=== PATIENT | female | born 1945 | race Caucasian/White ===

== ENCOUNTER → 2017-09-06 | Outpatient (CLI) | payer MEDICARE, OTHER ==
[~2017-09-06] MED LIST: REGADENOSON 0.4 MG/5 ML SYR IV ONE
--- NOTE | 2017-09-07 17:34 | Cardiology Report ---
DATE OF STUDY: September 06, 2017 NUCLEAR GATED MYOCARDIAL PERFUSION SCAN Performed at [facility]. Lexiscan injected 0.4 mg intravenously as stress agent. Myoview injected 10.7 mCi per resting protocol and 32.8 mCi for stress protocol. I supervised the stress test and interpreted the nuclear stress test. IMPRESSION 1. Mild anterior wall attenuation noted during the stress slices. Mild anterior wall ischemia noted. 2. Left ventricular ejection fraction 60%. Job#: [id number]
== END ==
LOC: NM 08:31
PROVIDERS: ATTEND Internal Medicine Cardiovascular Disease
DX: R07.9 Chest pain, unspecified (principal)
CPT/HCPCS: 78452; 93017; A9502

== ENCOUNTER 2017-09-19 02:10 | Emergency (ER) | payer MEDICARE, OTHER ==
[~2017-09-19] VITALS: Ht 160 cm; Wt 63.5 kg
[2017-09-19] MEDS ORDERED: ONDANSETRON HCL 4 MG ORAL DISINTEGRATING TAB PO ONE (02:45)
[2017-09-19 02:50] LABS: BILIRUBIN,URINE NEGATIVE (NEGATIVE); KETONES,URINE NEGATIVE (NEGATIVE); LEUKOCYTE ESTERASE ,URINE NEGATIVE (NEGATIVE); NITRITE,URINE NEGATIVE (NEGATIVE); PROTEIN,URINE DIPSTICK NEGATIVE (NEGATIVE); URINE UROBILINOGEN 0.2 mg/dL (0.2 - 1)
[2017-09-19 02:53] LABS: CLARITY,URINE CLEAR (CLEAR); COLOR,URINE YELLOW (YELLOW)
[2017-09-19 03:03] LABS: AMORPHOUS SEDIMENT,URINE FEW (FEW); BACTERIA,URINE FEW /HPF; EPITHELIAL CELLS,URINE RARE /LPF; RBC,URINE 0-5 /HPF (0-5); WBC,URINE (MAN) 0-5 /HPF (0-5)
[2017-09-19] MEDS ORDERED: ZOFRAN ODT4 MG SL (06:29)
--- NOTE | 2017-09-19 10:58 | Diagnostic Imaging Report ---
Examination: CT BRAIN WITHOUT CONTRAST History:Fall. Head injury. Comparison studies:None Technique: Axial images were obtained from the skull base to the vertex. Coronal and sagittal images reconstructed from the axial data. Intravenous contrast: None Findings: Scalp: No abnormalities. Bones: No fractures, blastic or lytic lesions. Brain sulci: Appropriate for age. Ventricles: Normal in size and configuration. No hydrocephalus. Extra-axial space: No abnormalities. Parenchyma: No abnormal densities. No masses, hemorrhage, acute or chronic vascular insults. Sellar/suprasellar region: No abnormalities. Craniocervical junction: Patent foramen magnum. No Chiari one malformation. Incidental findings: None. Impression: No intracranial abnormalities. Signed by: Dr. Priya Gann M.D. on 09/19/2017 10:54 AM
[2017-09-22] MEDS ORDERED: BACTRIM DS TAB1 EACH PO (08:22)
[2017-09-22] MEDS ORDERED: NORTRIPTYLINE H10 MG PO (08:22)
[2017-09-22] MEDS ORDERED: AMLODIPINE BESY10 MG PO (08:22)
[2017-09-22] MEDS ORDERED: PANTOPRAZOLE SO40 MG PO (08:22)
[2017-09-22] MEDS ORDERED: ASPIRIN EC81 MG PO (08:22)
[2017-09-22] MEDS ORDERED: LEVOCETIRIZINE D5 MG PO (08:22)
[2017-09-22] MEDS ORDERED: METOPROLOL TART25 MG PO (08:22)
== END 2017-09-19 06:50 | disposition home or self-care (01) ==
LOC: ER 02:10
DX: S06.0X0A Concussion without loss of consciousness, initial encounter (principal); S00.03XA Contusion of scalp, initial encounter; R51 Headache; R11.2 Nausea with vomiting, unspecified; W22.09XA Striking against other stationary object, initial encounter; Y92.008 Other place in unspecified non-institutional (private) residence as the place of occurrence of the external cause; I10 Essential (primary) hypertension; I25.10 Atherosclerotic heart disease of native coronary artery without angina pectoris; K21.9 Gastro-esophageal reflux disease without esophagitis
CPT/HCPCS: 70450; 81001; 87086; 99283

== ENCOUNTER → 2017-09-22 | Day surgery (SDC) | payer MEDICARE, OTHER ==
[2017-09-21 16:16] LABS: BASOPHILS % 0.4 % (0.0-1.0); EOSINOPHILS # (AUTO) 0.1 (0.0-0.4); EOSINOPHILS % 1.3 % (0.0-6.0); HEMATOCRIT 38.2 % (34.2-44.1); HEMOGLOBIN 12.5 g/dL (12.0-16.0); MEAN CORPUSCULAR HEMOGLOBIN 31.1 pg (28-32); MEAN CORPUSCULAR HGB CONC 32.7 g/dL (31-35); MONOCYTES # (AUTO) 1.1 (0.2-0.8); MONOCYTES % 14.3 % (4.4-11.3); NEUTROPHILS # (AUTO) 4.2 (2.1-6.9); NEUTROPHILS % 56.7 % (38.7-80.0); PLATELET COUNT 270 x10e3/uL (140-360); RED BLOOD COUNT 4.02 x10e6/uL (3.6-5.1); RED CELL DISTRIBUTION WIDTH 12.3 % (11.7-14.4)
[2017-09-21 16:30] LABS: CREATININE, SERUM 0.78 mg/dL (0.57-1.11)
--- NOTE | 2017-09-21 16:43 | Diagnostic Imaging Report ---
PROCEDURE: Frontal and lateral views of the chest. COMPARISON: None. INDICATIONS: pre op for heart cath FINDINGS: Lines/tubes: None. Lungs: The lungs are well inflated and clear. There is no evidence of pneumonia or pulmonary edema. Pleura: There is no pleural effusion or pneumothorax. Heart and mediastinum: The heart and the mediastinum are normal. Bones: No acute bony abnormality. IMPRESSION: 1. No acute cardiopulmonary disease. Mervin Gupta M.D. Dictated by: Mervin Gupta M.D. on 09/21/2017 at 16:52 Electronically approved by: Mervin Gupta M.D. on 09/21/2017 at 16:52
[~2017-09-22] VITALS: Ht 160 cm; Wt 63.5 kg
[~2017-09-22] MED LIST changes: +AMLODIPINE BESY10 MG PO; +ASPIRIN EC81 MG PO; +BACTRIM DS TAB1 EACH PO; +FENTANYL CITRATE/PF 100MCG/2 ML INJ ONE; +HEPARIN SOD/SOD CHLORIDE 2,000 ML ONE; +IOPAMIDOL 370 MG/ML 200 ML INFUS..BTL INJ ONE; +LEVOCETIRIZINE D5 MG PO; +LIDOCAINE HCL 2% LOCAL 20 ML VIAL ONE; +METOPROLOL TART25 MG PO; +MIDAZOLAM HCL 2 MG/2 ML VIAL ONE; +NORTRIPTYLINE H10 MG PO; +PANTOPRAZOLE SO40 MG PO; -REGADENOSON 0.4 MG/5 ML SYR IV ONE; +SODIUM CHLORIDE 0.9% 1000ML 1,000 ML ONE; +ZOFRAN ODT4 MG SL
[2017-09-22 13:42] VITALS: BP 137/68
--- NOTE | 2017-09-22 15:47 | Pre Op History & Physical ---
CHIEF COMPLAINT: Patient comes in with chest pain. HISTORY OF PRESENT ILLNESS: Patient had a nuclear stress, was found to have mild anterior wall ischemia. Patient is known patient with mild coronary artery disease in the past. Patient has history of hypertension, and patient also complains of shortness of breath. Ejection fraction about 35%. Patient with no history of myocardial infarction. Patient very anxious person. Patient does not smoke, and THE PATIENT IS SUPPOSED TO BE ALLERGIC TO LISINOPRIL WHERE SHE GETS A COUGH. HOWEVER, WE ARE STILL GIVING HER LISINOPRIL BECAUSE OF LOW EF. Her medications include amlodipine, lisinopril, metoprolol, nitroglycerin p.r.n. chest pain, and also patient took Bactrim recently because of bronchitis. Patient did not have any major surgeries in past. PATIENT HAS NO SIGNIFICANT ALLERGIES. Patient did not have any stroke. Had no history of nausea, vomiting, abdominal pain. PHYSICAL EXAMINATION GENERAL: The patient is conscious, alert, well oriented. HEART: Normal. LUNGS: Normal. ABDOMEN: Normal. NEUROLOGIC: Normal. SKIN: Normal. EKG shows nonspecific ST-T changes. Nuclear test is abnormal with anterior wall ischemia noted. Ejection fraction is 35% by echo. IMPRESSION 1. Angina pectoris. 1. Left ventricular function decreased, 35%. 2. Hypertension. 3. Hiatal hernia. Patient admitted at this time for coronary angiogram. Job#: [id number]
--- NOTE | 2017-09-22 15:51 | Operative Report ---
DATE OF PROCEDURE: September 22, 2017 PROCEDURES PERFORMED: Left heart catheterization, left ventricular angiogram and coronary angiogram to the right femoral artery with conscious sedation. Informed consent at photo lab specialist at [facility]. INDICATIONS FOR PROCEDURE: Angina pectoris, abnormal nuclear stress test, EF 35%. PROCEDURE RESULTS: Right coronary arteriogram showed normal right coronary artery. The left main artery is normal. Left circumflex artery has got 10% lesion noted. The LAD has got 10% lesion noted. No significant lesion noted in the coronary arteries. Left ventricular angiogram showed ejection fraction of 38% with global hypokinesia. IMPRESSION: Nonischemic cardiomyopathy. Right femoral artery is closed with Perclose closure device. The patient is in stable condition at this time. Will continue present medications. Job#: [id number] GH
--- NOTE | 2017-09-22 15:56 | Discharge Summary ---
DISCHARGE DIAGNOSIS 1. Angina pectoris. 2. Minimal coronary artery disease. 3. Nonischemic cardiomyopathy. 4. Hypertension. PROCEDURES: By Dr. Perez 1. Left heart catheterization. 2. Left ventricular angiogram. 3. Coronary angiogram through the right femoral artery, excellent results. Patient underwent coronary angiogram, does not show significant disease. Mild plaques are noted in the circumflex, LAD. LVEF 30%. Patient to continue beta babita, lisinopril, anticholesterol medication and aspirin. Patient will be discharged today, and I discussed with her possibly wearing a LifeVest for 3 months and possibly AICD at a later time. Patient at this time in stable condition. After going home, patient will be seen in my office 1 week from now. Patient advised to go home and take rest, and normal diet is advised at this time and increase the p.o. fluids. Patient discharged in stable condition. Kwan PEREZ MD Job#: [id number] EV
== END | disposition home or self-care (01) ==
LOC: CATH LAB 07:38
PROVIDERS: ATTEND Internal Medicine Cardiovascular Disease
DX: I25.119 Atherosclerotic heart disease of native coronary artery with unspecified angina pectoris (principal); I42.8 Other cardiomyopathies; I10 Essential (primary) hypertension; R94.39 Abnormal result of other cardiovascular function study; K44.9 Diaphragmatic hernia without obstruction or gangrene; Z01.810 Encounter for preprocedural cardiovascular examination; Z01.812 Encounter for preprocedural laboratory examination; Z01.818 Encounter for other preprocedural examination; Z79.82 Long term (current) use of aspirin
CPT/HCPCS: 36415; 71046; 77002; 82565; 84520; 85025; 93005; 93458; C1725; J2001; J2250; J7030; Q9967; 36140

== ENCOUNTER 2020-07-20 17:30 | Emergency (ER) | payer MEDICARE, OTHER ==
[~2020-07-20] VITALS: Ht 160 cm; Wt 72.6 kg
[~2020-07-20 17:30] MED LIST changes: -FENTANYL CITRATE/PF 100MCG/2 ML INJ ONE; -HEPARIN SOD/SOD CHLORIDE 2,000 ML ONE; -IOPAMIDOL 370 MG/ML 200 ML INFUS..BTL INJ ONE; -LIDOCAINE HCL 2% LOCAL 20 ML VIAL ONE; -MIDAZOLAM HCL 2 MG/2 ML VIAL ONE; -SODIUM CHLORIDE 0.9% 1000ML 1,000 ML ONE
--- OUTSIDE RECORDS SUMMARY | 2020-07-20 19:04 | XMS REPORT | Continuity of Care Document ---
Author Author [facility] t Organization [facility] Address [address] [place] [address] Phone Unavailable Care Team Providers Care Architectural Sales Consultant Name Role Phone Andrzej DIETRICH, Jessica Singleton PCP Henok Yepez MD Attphys Miles Valdez Attphys ALBINA VALDEZ Attphys Unavailable Francisca MORELOS Attphys Unavailable Payers Payer Name Policy Type Policy Number Effective Date Expiration Date S ashu MEDICAREMEDICARE PART A AND [id number] 2015-PresentHOU REJI [facility] [id number] 2015 00:00:00 [place] [facility] A[employer]NA[employer]ENTAL LIFE INS CO OF [id number] 2020- PresentCommercial [id number] 2019 00:00:00 [facility] Problems Condition Name Condition Details Condition Category Status Onset Date Resolution Date Last Treatment Date Treating Clinician Comments Source S09.90XA , S09. 90XA , Active 11/08/2019 [facility] Diagnosis Active 2019-11-08 00:00:00 2019-11-13 09:10:00 Vannessa Saldana Cerebrovascular accident (disorder) Cerebrovascular accident (disorder) Active Problem 11/15/2019 [facility] Problem Active 2019-11-15 22:56:13 Vannessa Saldana Atherosclerosis of coronary artery (disorder) Atherosclerosis of coronary artery (disorder) Active Problem 11/15/2019 [facility] Problem Active 2019-11-15 22:56:13 [facility] Les Gastroesophageal reflux disease (disorder) Gastroesophageal reflux disease (disorder) Active Problem 11/15/2019 [facility] Problem Active 2019-11-15 22:56:13 [facility] Heart failure (disorder) Hear t failure (disorder) Active Problem 11/15/2019 [facility] Problem Active 2019-11-15 22:56:1 3 [facility] Hyperlipidemia (disorder) Hype rlipidemia (disorder) Active Problem 11/15/2019 [facility] Problem Active 2019-11-15 22:5 6:13 [facility] Hypertensive disorder, systemic arterial (disorder) Hypertensive disorder, systemic arterial (disorder) Active Problem 11/15/2019 [facility] Problem Active 2019-11-15 22:56:13 [facility] UNSPECIF[facility] INJURY OF HEAD, INITIAL ENCO UNSPECIFIED INJURY OF HEAD, INITIAL ENCO Active [facility] Diagnosis Active 2019-11-13 09:10:00 Vannessa Saldana Allergies, Adverse Reactions, Alerts Allergy Name Allergy Type Status Severity Reaction(s) Onset Date Inacti ve Date Treating Clinician Comments Source hydrocodone DA Active [place] 2018-05-20 00:00:00 [facility] acetaminophen DA Active MT 2018-05-20 00:00:00 [facility] hydrocodone DA Active MT 2017-12-06 00:00:00 [facility] acetaminophen DA Active MT 2017-12-06 00:00:00 [facility] penicillin penicillin Active Pa demetra Saldana Social History Social Habit Start Date Stop Date Quantity Comments Source Sex Assigned At Shivani Borrego Exposure to SARS-CoV-2 (event) Not sure Tulio Borrego Social History 2018-08-18 23:57:10 2018-08-18 23:57:10 [facility] Les Medications This patient has no known medications. Immunizations Ordered Immunization Name Filled Immunization Name Date Status Comments Source Influenza Whole 2017-09-03 00:00:00 Completed Tulio Borrego Pneumococcal Conjugate 13-Valent 2017-03-18 00:00:00 Compl eted Tulio Borrego Procedures Procedure Date / Time Performed Performing Clinician Segun carvalho MRI KNEE WO CONTRAST LEFT 2020-07-15 14:24:36 Glory Yepez Cataract surgery Vannessa candelario Coronary angiogram [facility] meliton Plan of Care Planned Activity Planned Date Details Comments Source Future Scheduled Test 2020-03-28 00:00:00 INFLUENZA VACCINE [code = INFLUENZA VACCINE] Tulio Borrego Future Scheduled Test 2018-03-18 00:00:00 65+ PNEUMOCOCCAL V ACCINE (2 of 2 - PPSV23) [code = 65+ PNEUMOCOCCAL VACCINE (2 of 2 - PPSV23)] [facility] Future Scheduled Test 1995 00:00:00 BREAST CANCER SCRE ENING [code = BREAST CANCER SCREENING] [facility] Future Scheduled Test 1995 00:00:00 COLONOSCOPY SCREEN ING [code = COLONOSCOPY SCREENING] [facility] Future Scheduled Test 1995 00:00:00 SHINGLES VACCINES (#1) [code = SHINGLES VACCINES (#1)] [facility] Encounters Start Date/Time End Date/Time Encounter Type Admission Type [facility] Care Department Encounter ID Source 2020-07-15 00:00:00 2020-07-15 00:00:00 Outpatient GLORY YEPEZ [facility] [id number] [facility] 2019-11-13 09:01:00 2019-11-13 23:59:00 Outpatient Maria Doloresmarlin Albina schmidt Miles [facility] [id number] 2019-11-13 09:01:00 2019-11-13 09:01:00 Outpatient [facility] Results Test Description Test Time Test Comments Results Result Comments Source MRI Knee Left Wo Contrast 2020-07-15 14:39:25 H m Interface, Radiology Results 07/15/2020 2:42 PM CSTEXAMINATION: MRI KNEE WO CONTRAST LEFTCLINICAL HISTORY: M25.562 Pain in left knee, pain in left kneeTECHNIQUE: Multiplanar multisequence MR imaging of the left knee was performed without contrast.COMPARISON: None.FINDINGS:Cruciate ligaments: Intact.Collateral ligaments: Intact.Medial Compartment:Probable small tear involving the inferior articular surface of the medial meniscus posterior horn near the meniscal root, images 14 and 15 of series 6. There is overall cartilage thinning of the medial femoral condyle with mild osteophytosis.Lateral Compartment:Intermediate signal involving free edge of the body of lateral meniscus probably due to fraying of the free edge. Otherwise, no clear meniscal tear noted. No significant cartilage loss.Patellofemoral Compartment:Cartilage thinning and scattered areas of cartilage loss, most severe involving the lateral facet of the patella with mild subchondral edema. Extensor mechanism: Intact.Effusion: Small joint effusion with synovitis.Bone marrow: No other areas of marrow signal abnormality.Soft tissues: There is a small approximately 1 cm septated popliteal cyst. Prominent edema of the medial fat pad near the quadriceps.IMPRESSION:1.Small joint effusion with prominent degree of synovitis, with edema involving the medial aspect of the quadriceps fat pad. Degree of synovitis appears out of portion to the amount of cartilage abnormality, and possibility of inflammatory arthritis could also be considered and correlated.2.Osteoarthritis of the knee with areas of cartilage loss, most notable involving the patellofemoral compartment and to a lesser degree the medial compartment.3.There is probable small meniscal tear involving the posterior horn of medial meniscus.[id number] [facility] CREATININE W ESTIMATED GFR 2020-04-09 11:12:00 Test Item BEDSIDE CREATININE (test code = CREATBED) mg/dL 0.7-1.3 N GLOMERULAR FILTRATION RATE POC (test code = GFRBED) 68 >6 0 H CREATININE W ESTIMATED [id number] 11:12:00* Test Item Value Reference Range Interpretation Comments BEDSIDE CREATININE (test code = CREATBED) 0.82 mg/dL 0.7-1.3 N GLOMERULAR FILTRATION RATE POC (test code = GFRBED) > 60 >6 0 H Previously reported result: 68 Edited by: ISRAEL on 04/09/20:456241 1112: GFRBED previously reported as: 68 H SCR MAMM BILATERAL YUE CAD [id number] 10:31:16 - SCR MAMM BILATERAL YUE CAD DIGITALBILATERAL DIGITAL SCREENING MAMMOGRAM 3D/2D WITH CAD: 08/07/2019CLINICAL: Asymptomatic. Digital breast tomosynthesis was performed in addition to routine CC and MLO views. Current mammographic images were evaluated by either a [employer] M-Vu or a [employer] Image[employer] CAD (computer aided detection system). Comparison is made to exams dated 07/18/2018 mammogram, 06/28/2017 mammogram, and 06/28/2016 mammogram - [facility]. The tissue of both breasts is heterogeneously dense. This may lower the sensitivity of mammography. No suspicious mass, architectural distortion, malignant type calcification, or lymph node abnormality detected. Breast architecture is stabl e compared to prior exams.IMPRESSION: NEGATIVEThere is no mammographic evidence of malignancy. Resume annual screening mammography in one year. Bladimir morales M.D. ss/penrad:08/07/2019 10:31:16 [place] [employer]: Mary Mathew , [facility] sent: BIRADS 1-2 Normal Mammogram B I-RADS: 1 NegativeSCR MAMM BILATERAL YUE CAD [id number] 14:57:06 - SCR MAMM BILATERAL YUE CAD DIGITALBILATERAL DIGITAL SCREENING MAMMOGRAM 3D/2D WITH CAD: 07/18/2018CLINICAL: Asymptomatic. Digital breast tomosynthesis was performed in addition to routine CC and MLO views. Current mammographic images were evaluated by either a [employer] M-Vu or a [employer] ImageCheck[employer] CAD (computer a ided detection system). Comparison is made to exams dated 06/28/2017 mammogram, 06/28/2016 mammogram, and [facility]. The tissue of both breasts is heterogeneously dense. This may lower the sensitivity of mammography. No suspicious mass, architectural distortion, malignant type calcification, or lymph node abnormality detected. Breast architecture is stabl e compared to prior exams.IMPRESSION: NEGATIVEThere is no mammographic evidence of malignancy. Resume annual screening mammography in one year. Garland Nguyen n/penrad:07/18/2018 14:57:06 [employer]: Ivon power , [facility] sent: BIRADS 1-2 Normal Mammogram BI-RA DS: 1 NegativeCHEST 2 VIEWS [place] [address] Patient Name: JEAN-PIERRE URENA MR #: [id number] : 1945 Age/Sex: 71/F Req #: [id number] [facility] Physician: Ordered by: ALBINA VALDEZ MD Report #: [id number] Location: FIELD CARE COORDINATOR Room/Bed: Procedure: [id number] DX/CHEST 2 VIEW S Exam Date: Exam Time: REPORT STATUS: Veronica d PROCEDURE: Frontal and lateral views of the chest. COMPARISON: None . INDICATIONS: pre op for heart cath FINDINGS: Lines/tubes: None. Lungs: The lungs are well inflated and clear. There is no evidence of pneumonia or pulmonary edema. Pleura: There is no pleural effusion or pneumothorax. Heart and mediastinum: The heart and the mediastinum are normal. Bones: No acute bony abnormality. IMPRESSION: 1. No acute cardiopulmonary disease. Mervin Ferrara M.D. Dictated by: Mervin Ferrara M.D. on 09/21/2017 at 16:52 Electronically approved by: Mervin Ferrara M.D. on 09/21/2017 at 16:52 Dictated By: WES FERRARA MD, MD 51 Transcribed By: ISRAEL on 09/21/171651 COPY TO: ALBINA LAGOS MD CT BRAIN WO [place] [address] Patient Name: JEAN-PIERRE URENA MR #: [id number] : 1945 Age/Sex: 71/F Req #: [id number] Adm Physician: Ordered by: RADHA MORELOS MD Report #: [id number] Location: ER Room/Bed: Procedure: [id number] CT/CT BRAIN JUMA kang Date: 09/19/17 Exam Time: 0300 REPORT STATUS: Signed Examination: CT BRAIN WITHOUT CONTRAST History:Fall. Head injury. Comparison studies:None Technique: Axial images were obtained from the skull base to the vertex. Coronal and sagittal images reconstructed from the axial data. Intravenous contrast: None Findings: Scalp: No abnormal ities. Bones: No fractures, blastic or lytic lesions. Brain sulci: Approp riate for age. Ventricles: Normal in size and configuration. No hydrocephalus. Extra-axial space: No abnormalities. Parenchyma: No abnormal den sities. No masses, hemorrhage, acute or chronic vascular insults. Sellar /suprasellar region: No abnormalities. Craniocervical junction: Patent foramen magnum. No Chiari one malformation. Incidental findings: None. Imp ression: No intracranial abnormalities. Signed by: Dr. Dakota servin M.D. on 09/19/2017 10:54 AM Dictated By: DAKOTA WEBB MD 1054 Transcri bed By: MALACHI on 09/19/17 1054 COPY TO: RADHA MORELOS MD Stress Test - Treadmill ONLY [place] [address] Patient Name : JEAN-PIERRE URENA MR #: [id number] : 1945 Age/Sex: 71/F Adm Physician : ALBINA VALDEZ MD Admit Date : Location : NE Room/Bed : REPORT: Cardiology Report DATE OF STUDY: September 06, 2017 NUCLEAR GATED MYOCARDIAL PERFUSION SCAN P erformed at [facility]. Lexiscan injected 0.4 mg int ravenously as stress agent. Myoview injected 10.7 mCi per resting protocol a nd 32.8 mCi for stress protocol. I supervised the stress test and interpret ed the nuclear stress test. IMPRESSION 1. Mild anterior wall attenuatio n noted during the stress slices. Mild anterior wall ischemia noted. 2. L eft ventricular ejection fraction 60%. Job#: [id number] Signature Date Di ctated By: ALBINA VALDEZ MD Transcribed By: MIKE on 09/07/17 < Electronically signed by ALBINA VALDEZ MD><<Signature on File>>09/18/17 4909 COPY TO:
--- OUTSIDE RECORDS SUMMARY | 2020-07-20 19:04 | XMS REPORT | Continuity of Care Document ---
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 Name Role Phone [employer] Unavailable Un available Problems Problem Status Onset Date Classification Date Reported Comments Source S09.90XA , Active 11/08/2019 [facility] Cerebrovascular accident (disorder) Active Problem [facility] Atherosclerosis of coronary artery (disorder) Active Problem 11/15/2019 [facility] Gastroesophageal reflux disease (disorder) Active Problem 11/15/2019 [facility] Heart failure (disorder) Active Problem 11/15/2019 [facility] Hyperlipidemia (disorder) Acti ve Problem [facility] Hypertensive disorder, systemic arterial (disorder) Active Problem 11/15/2019 [facility] UNSPECIFIED INJURY OF HEAD, INITIAL ENCO Active [facility] Medications No Data Provided for This Section Allergies, Adverse Reactions, Alerts Substance Category Reaction Severity Reaction type Status Date Reported Comments Source penicillin Assertion Drug allergy Active [facility] Immunizations Immunization Date Given Site Status Last Updated Comments Source influenza virus vaccine, inactivated 08/21/2018 Left deltoid completed [facility] Results No Data Provided for This Section Pathology Reports No Data Provided for This Section Diagnostic Reports Report Value Date Source Brain wo contrast CT Radiation Dose CTDIVOL = 0 (mGy): DLP = 1038.1 (mGy-cm) PROCEDURE INFORMATION: Exam: CT Head Without Contrast Exam date and time: 11/13/2019 9:23 AM Age: 74 years old Clinical indication: Unspecified injury of head, initial encounter; Unspecified fall, initial encounter; Additional info: /s09.90xa, w19. Xxxa TECHNIQUE: Imaging protocol: Computed tomography of the head without contrast. Total DLP: 1038.1 mGy-cm Radiation optimization: All CT scans at this facility use at least one of these dose optimization techniques: automated exposure control; mA and/or kV adjustment per patient size (includes targeted exams where dose is matched to clinical indication); or iterative reconstruction. COMPARISON: No relevant prior studies available. FINDINGS: Brain: There is minimal central and cortical atrophy. There are no extra-axial fluid collections. There is no acute cortical infarct, parenchymal hemorrhage or intra axial mass. Sellae and para sellae structures are normal for age. There is no tonsillar ectopia. The orbital lenses have been resected. The globes are intact. There is no retrobulbar abnormality. Ventricles: Normal. No ventriculomegaly. Bones/joints: Unremarkable. No acute fracture. Sinuses: Visualized sinuses are unremarkable. No fluid levels. Mastoid air cells: Visualized middle ear cavity, antrum and mastoid air cells are normally aerated. Soft tissues: Unremarkable. IMPRESSION: There is no acute cortical infarct, hemorrhage or intra axial mass. There is minimal central/cortical atrophy. There are no extra-axial fluid collections. There is no fracture of the cranium. Jeramie Owens MD On 11/13/2019 10:53:56; [id number] 11/13/2019 [facility] Consultation Notes No Data Provided for This Section Discharge Summaries No Data Provided for This Section History and Physicals No Data Provided for This Section Vital Signs No Data Provided for This Section Encounters Location Location Details Encounter Type Encounter Number Reason For Visit Attending Provider ADM Date DC Date Status Source [facility] Out[facility] [id number] Albina Valdez 11/13/2019 11/14/2019 [facility] Procedures Procedure Code Date Perfomer Comments Source Cataract surgery [id number] [facility] Coronary angiogram [id number] [facility] Assessment and Plan No Data Provided for This Section Plan of Care No Data Provided for This Section Social History Social History Date Source Social History TypeResponse Alcohol Current, Type Wine. Frequency: 1-2 times per month. Alcohol use interferes with work or home: No. Drinks more than intended: No. Others hurt by drinking: No. Smoking Status Never smoker; Exposure to Tobacco Smoke None; Cigarette Smoking Last 365 Days No; Reg Smoking Cessation Counseling No entered on: 08/15/19 08/18/2018 [facility] Family History No Data Provided for This Section Advance Directives No Data Provided for This Section Functional Status No Data Provided for This Section
--- OUTSIDE RECORDS SUMMARY | 2020-07-20 19:04 | XMS REPORT | Clinical Summary ---
Author Author [facility] Address Unknown Phone Unavailable Care Team Providers Care Bending Roll Hand Name Role Phone Mani Donnelly MD PCP Allergies Not on File Medications Not on file Active Problems Not on file Encounters Care Team Description Date Type Specialty Gregg Yepez MD Pain in left knee 07/15/2020 Hospital Radiology Encounter 07/15/2020 Travel 07/13/2020 Travel Gregg Yepez MD Pain in left knee (Primary Dx) 07/13/2020 Transcribe Access Orders after 07/20/2019 Immunizations Name Administration Dates Next Due Influenza Whole 09/03/2017 Pneumococcal Conjugate 03/18/2017 [facility] Social History Date Tobacco Use Types Packs/Day Years Used Never Assessed Sex Assigned at Date Recorded Not on file Industry Job Start Date Occupation Not on file Not on file Not on file Date Recorded COVID-19 Exposure Response 07/15/2020 1:00 PM [employer] In the last month, have you been in contact with No / Unsure someone who was confirmed or suspected to have Coronavirus / COVID-19? Last Filed Vital Signs Not on file Plan of Treatment Health Maintenance Due Date Last Done Comments BREAST CANCER SCREENING 1995 COLONOSCOPY SCREENING 1995 SHINGLES VACCINES (#1) 1995 65+ PNEUMOCOCCAL VACCINE 03/18/2018 03/18/2017 (2 of 2 - PPSV23) INFLUENZA VACCINE 03/28/2020 08/21/2018, 09/03/2017, 09/03/2017, Additional history exists Procedures Comments Procedure Name Priority Date/Time Associated Diag nosis MRI KNEE WO CONTRAST LEFT Routine 07/15/2020 Pain in left knee 2:24 PM [facility] after 07/20/2019 Results * MRI Knee Left Wo Contrast (07/15/2020 2:24 PM [facility]) Specimen Narrative Performed At [facility] EXAMINATION: MRI KNEE WO CONTRAST LEF T CLINICAL HISTORY: M25.562 Pain in lef t knee, pain in left knee TECHNIQUE: Multiplanar multisequence MR imaging of the left knee was performed without contrast. COMPARISON: None. FINDINGS: Cruciate ligaments: Intact. Collateral ligaments: Intact. Medial Compartment:Probable small tear involving the inferior articular surface of the medial meniscus posterior horn n ear the meniscal root, images 14 and 15 of series 6. There is overall cartilage thinning of the medial femoral condyle with mild osteophytosis. Lateral Compartment:Intermediate signal involving free edge of the body of lateral meniscus probably due to frayin g of the free edge. Otherwise, no clear meniscal tear noted. No significant car tilage loss. Patellofemoral Compartment:Cartilage th inning and scattered areas of cartilage loss, most severe involving the lateral facet of the patella with mild subchondral edema. Extensor mechanism: Intact. Effusion: Small joint effusion with syn ovitis. Bone marrow: No other areas of marrow s ignal abnormality. Soft tissues: There is a small approxim ately 1 cm septated popliteal cyst. Prominent edema of the medial fat pad n ear the quadriceps. IMPRESSION: 1.Small joint effusion with prominent d egree of synovitis, with edema involving the medial aspect of the quadriceps fat pad. Degree of synovitis appears out of portion to the amount of cartilage abno rmality, and possibility of inflammatory arthritis could also be considered and correlated . 2.Osteoarthritis of the knee with areas of cartilage loss, most notable involving the patellofemoral compartmen t and to a lesser degree the medial compartment. 3.There is probable small meniscal tear involving the posterior horn of medial meniscus. [facility]-[id number] Procedure Note Interface, Radiology Results Incoming - 07/15/2020 2:42 PM [facility] EXAMINATION: MRI KNEE WO CONTRAST LEFT CLINICAL HISTORY: M25.562 Pain in left knee, pain in left knee TECHNIQUE: Multiplanar multisequence MR imaging of the left knee was performed without contrast. COMPARISON: None. FINDINGS: Cruciate ligaments: Intact. Collateral ligaments: Intact. Medial Compartment:Probable small tear involving the inferior articular surface of the medial meniscus posterior horn near the meniscal root, images 14 and 15 of series 6. There is overall cartilage thinning of the medial femoral condyle with mild osteophytosis. Lateral Compartment:Intermediate signal involving free edge of the body of lateral meniscus probably due to fraying of the free edge. Otherwise, no clear meniscal tear noted. No significant cartilage loss. Patellofemoral Compartment:Cartilage thinning and scattered areas of cartilage loss, most severe involving the lateral facet of the patella with mild subchondral edema. Extensor mechanism: Intact. Effusion: Small joint effusion with synovitis. Bone marrow: No other areas of marrow signal abnormality. Soft tissues: There is a small approximately 1 cm septated popliteal cyst. Prominent edema of the medial fat pad near the quadriceps. IMPRESSION: 1.Small joint effusion with prominent de gree of synovitis, with edema involving the medial aspect of the quadriceps fat pad. Degree of synovitis appears out of portion to the amount of cartilage abnormality, and possibility of inflammatory arthritis could also be considered and correlated. 2.Osteoarthritis of the knee with areas of cartilage loss, most notable involving the patellofemoral compartment and to a lesser degree the medial compartment. 3.There is probable small meniscal tear involving the posterior horn of medial meniscus. [facility]-[id number] [facility] Organization Address City/State/ZIP Code P shannon Number [facility] [address] [place] [address] after 07/20/2019 Insurance Type Payer Benefit Subscriber ID Effective Phone Address Plan / Dates Group Medicare MEDICARE MEDICARE [id number] 2015- [place], PART A AND Present [place] Commercial [employer] [place] [id number] 2019-P [place] [employer] [place] [phone] Advance Directives For more information, please contact: [phone] Patient Draw In Hand Explanation Type Date Recorded Advance Directives, Living Will and Medical Power of Technical Writer And Editor
--- NOTE | 2020-07-20 19:05 | Emergency Department Note ---
History of Present Illnes History of Present Illness Chief Complaint: Head/Face Trauma History of Present Illness This is a 74 year old female Chief Complaint Comment PT STATES AT 1300 SHE BENT OVER AND WHEN SHE CAME UP SHE HIT HER HEAD ON BUNKBED. DENIES LOC, C/O HEADACHE, TYLENOL [id number] [id number] . Historian: Patient Arrival Mode: Car Onset (how long ago): day(s) (1) Location: HEAD Quality: DULL Radiation: Denies non-radiation, Denies back, Denies neck, Denies extremity, Denies abdomen, Denies periumbilical, Denies flank, Denies proximal, Denies distal, Denies other Severity: moderate Onset quality: gradual (1) Duration (how long): day(s) Timing of current episode: constant Progression: unchanged Chronicity: new Context: Denies recent illness, Denies recent surgery, Denies recent immobilization, Denies recent travel, Denies trauma/injury, Denies new medications, Denies hx of DVT/PE, Denies non-compliance w/ medications, Denies other Relieving factors: none Exacerbating factors: none Associated symptoms: Reports headaches; Denies denies other symptoms, Denies confusion, Denies chest pain, Denies cough, Denies diaphoresis, Denies fever/chills, Denies loss of appetite, Denies malaise, Denies nausea/vomiting, Denies rash, Denies seizure, Denies shortness of breath, Denies syncope, Denies weakness, Denies other Treatments prior to arrival: none Past Medical/Family History Physician Review I have reviewed the patient's past medical and family history. Any updates have been documented here. Past Medical History Recent Fever: No Clinical Suspicion of Infectio: No New/Unexplained Change in Ment: No Past Medical History: Hypertension Other Medical History: ACID REFLUX, HIGH CHOL Past Surgical History: Hysterectomy Other Surgery: ANGIOGRAM 09/22/17 Social History Smoking Cessation: Never Smoker Counseling Performed: No Alcohol Use: Occasional Any Illegal Drug Use: No Physically hurt or threatened: No Other Any Pre-Existing Lines (PICC,: No Review of Systems Review of Systems Constitutional: Reports no symptoms EENTM: Reports no symptoms Cardiovascular: Reports no symptoms Respiratory: Reports no symptoms Gastrointestinal: Reports no symptoms Genitourinary: Reports no symptoms Musculoskeletal: Reports no symptoms Integumentary: Reports no symptoms Neurological: Reports as per HPI, Reports headache Psychological: Reports no symptoms Endocrine: Reports no symptoms Hematological/Lymphatic: Reports no symptoms Physical Exam Related Data Allergies: Coded Allergies: No Known Drug Allergies (Verified Allergy, Unknown, 05/26/10) Triage Vital Signs Vital Signs Date Time Temp Pulse Resp B/P (MAP) Pulse Ox O2 Delivery O2 Flow Rate FiO2 07/20/20 17:50 98.0 70 18 139/74 98 Vital signs reviewed: Yes Physical Exam CONSTITUTIONAL Constitutional: Present well-developed, Present well-nourished HENT HENT: Present oropharynx clear/moist, Present nose normal, Present other (TENDERNESS PARIETAL) HENT L/R: Present left ext ear normal, Present right ext ear normal EYES Eyes: Reports PERRL, Reports conjunctivae normal NECK Neck: Present ROM normal PULMONARY Pulmonary: Present effort normal, Present breath sounds normal CARDIOVASCULAR Cardiovascular: Present regular rhythm, Present heart sounds normal, Present capillary refill normal, Present normal rate GASTROINTESTINAL Abdominal: Present soft, Present nontender, Present bowel sounds normal GENITOURINARY Genitourinary: Present exam deferred SKIN Skin: Present warm, Present dry MUSCULOSKELETAL Musculoskeletal: Present ROM normal NEUROLOGICAL Neurological: Present alert, Present oriented x 3, Present no gross motor or sensory deficits PSYCHOLOGICAL Psychological: Present mood/affect normal, Present judgement normal Results Imaging Imaging results reviewed: Yes Assessment & Plan Medical Decision Making MDM CONTUSION BLEED Reassessment Reassessment SAME Assessment & Plan Final Impression: (1) Acute pain due to trauma (2) Head injury Depart Disposition: HOME, SELF-CARE Last Vital Signs Date Time Temp Pulse Resp B/P (MAP) Pulse Ox O2 Delivery O2 Flow Rate FiO2 07/20/20 17:50 98.0 70 18 139/74 98 Home Meds Active Scripts Naproxen (NAPROSYN) 500 Mg Tablet, 500 MG PO BID for pain, #14 TAB Prov:GRIFFIN RODRIGUEZ MD 07/20/20 Reported Medications Nortriptyline Hcl (NORTRIPTYLINE HCL) 10 Mg Cap, 10 MG PO DAILY 09/22/17 Levocetirizine Dihydrochloride (LEVOCETIRIZINE DIHYDROCHLORIDE) 5 Mg Tablet, 5 MG PO EVENING 09/22/17 Pantoprazole Sodium* (PROTONIX) 40 Mg Tablet.dr, 40 MG PO DAILY, TAB 09/22/17 Sulfamethoxazole/Trimethoprim (BACTRIM DS TABLET) 1 Each Tablet, 1 TAB PO DAILY, #60 TAB 09/22/17 Metoprolol Tartrate (METOPROLOL TARTRATE) 25 Mg Tablet, 25 MG PO BID, TAB 09/22/17 Amlodipine Besylate (AMLODIPINE BESYLATE) 10 Mg Tablet, 10 MG PO DAILY, #30 TAB 09/22/17 Aspirin (ASPIRIN EC) 81 Mg Tablet.dr, 81 MG PO DAILY, #30 TAB 09/22/17 GRIFFIN RODRIGUEZ MD Jul 20, 2020 19:05
--- NOTE | 2020-07-20 19:21 | Diagnostic Imaging Report ---
Exams: Head and cervical spine CTs without IV contrast History: Trauma Comparison studies: None Technique: Axial images were obtained from the brain and cervical spine. Coronal and sagittal images reconstructed from the axial data. Dose modulation, iterative reconstruction, and/or weight based adjustment of the mA/kV was utilized to reduce the radiation dose to as low as reasonably achievable. Intravenous contrast: None Findings: Head CT: Scalp: No abnormalities. Bones: No fractures, blastic or lytic lesions. Extra-axial spaces: No masses. No fluid collections. Brain sulci: Appropriate for age. Ventricles: Normal in size and configuration. No hydrocephalus. Parenchyma: No abnormal densities. No masses, acute hemorrhage, acute or chronic vascular insults. Sellar/suprasellar region: No abnormalities. Craniocervical junction: The foramen magnum is patent. No Chiari one malformation. Incidental findings: Atherosclerotic calcifications in the carotid siphons. Cervical spine CT: Fractures: None. Soft tissues: No gross abnormalities. Atlantoaxial articulation: Intact. Alignment: Strain cervical curvature may be positional. Approximately 3 mm anterolisthesis of C2 on C3 is most likely degenerative in etiology. No scoliosis. Cervicomedullary junction: No abnormalities. The foramen magnum is patent. Vertebrae: No infection or neoplasm. Degenerative changes: Moderate degenerative changes at the atlantodental articulation. Multilevel disc degeneration. The C3-C4 disc spaces are partially fused. Moderately degenerated disks at C5-C6 and C6-C7 with disc osteophyte complexes which indent the thecal sac and result in only mild canal stenosis. Multilevel facet arthrosis with fused facets bilaterally from C2 through C4. Multilevel uncovertebral facet arthrosis result in multilevel foraminal stenosis which is moderate right at C3-C4, severe bilaterally at C5-C6, and severe left and moderate right at C6-C7. IMPRESSION: Head CT: 1. No acute abnormalities.. 2. No changes from the prior head CT of 09/19/2017. Cervical spine CT: 1. No acute abnormalities. 2. Moderate multilevel degenerative changes as described. 3. Cannot exclude ligament, spinal cord and or vascular abnormalities on the basis of this examination Signed by: Dr. Alin Rosales M.D. on 07/20/2020 7:17 PM
[2020-07-20] MEDS ORDERED: NAPROSYN500 MG PO (19:27)
== END 2020-07-20 20:20 | disposition home or self-care (01) ==
LOC: FSED 18:00
DX: S00.83XA Contusion of other part of head, initial encounter (principal); W22.09XA Striking against other stationary object, initial encounter; Y92.008 Other place in unspecified non-institutional (private) residence as the place of occurrence of the external cause; I10 Essential (primary) hypertension; K21.9 Gastro-esophageal reflux disease without esophagitis; E78.00 Pure hypercholesterolemia, unspecified
CPT/HCPCS: 70450; 72125; 99283